=== PATIENT | female | born 1965 | race Caucasian/White ===

== ENCOUNTER 2016-10-07 23:52 | Emergency (ER) | payer OTHER ==
[~2016-10-07] VITALS: Ht 165.1 cm; Wt 90.9 kg
[2016-10-07 23:56] VITALS: BP 146/102; PULSE 84; RESP 16
--- NOTE | 2016-10-08 00:21 | ED.REPORT ---
HPI-Hand Prob/Inj Date of Service Oct 08, 2016 ED Provider: Hernan Ibarra MD Patient is a 50 year old female who presents to the ED complaining of a cat bite to the right hand that she sustained 2 days ago. Patient has a foster cat at home, who they are working with on some behavioral issues. The cat bite her while she was interacting with it. All of the cat's immunizations are up to date. The bite was painful after it first occurred, progressively becoming more painful, swollen, and red. She reports pain with movement of her fingers and difficulty straightening her fingers. She denies fever or chills. Nursing Notes Stated Complaint: CAT BITE, RT HAND Chief Complaint: Extremity Trauma Nursing Notes Reviewed: Yes Allergies: Coded Allergies: cephalexin (Verified Allergy, Intermediate, rash, 10/08/16) Scheduled Amoxicillin/Clav K 875-125 mg (Augmentin 875-125 mg) 1 Each Tablet 1 TABLET PO BID General Time Seen by Provider: 00:34 Chief Complaint Hand injury right Hx Obtained From: Patient Arrived By: Walk-in Onset Occurred: 2 days ago Symptom Duration: Since onset Progression Since Onset: Gradually worsening Location: Right Hand: : Dorsal surface Quality: Painful Severity: Current: Moderate Severity: Maximum: Moderate Recent Healthcare: No recent doctor visit, No recent hospitalization Similar Sx Previous: No Past Medical History Past Medical History IBS arthritis hypertension Past Surgical History colonoscopy Family History colon cancer Smoking History Unknown if Ever Smoker Social History Alcohol Use: "Social" Other Social History: Good social support, , Local resident Ambulatory Status Independent Review of Systems Constitutional: Denies: Chills, Fever Musculoskeletal: Reports: Extremity pain, Extremity swelling Complete sys rev & neg: except as marked. Physical Exam Initial Vital Signs Vital Signs (First) Date Time Temp Pulse Resp B/P Pulse Ox O2 Delivery O2 Flow Rate FiO2 10/07/16 23:56 36.0 84 16 146/102 Initial VS: Reviewed, Vital signs abnormal Head / Eyes: Atraumatic, Normocephalic, PERRL ENT: Conjunctiva normal, No scleral icterus Neck: Supple, Full range of motion Neurologic: Alert, Oriented, Nonfocal Psychiatric: Mood/affect normal, Behavior normal Wrist / Hand: Neurologic intact, Vascular intact Swelling over the ulnar 2/3 of the dorsum of the right hand. Small laceration in the middle. Small uninfected lacerations of the wrist. No swelling of the fingers, able to move with some pain. General/Constitutional: Awake, Alert, No acute distress Skin: Warm, Dry Respiratory / Chest: No respiratory distress, No stridor Cardiovascular: Heart rate NL, Cap refill not delayed, Peripheral circulation NL Upper Extremity / MS: Neurologic intact, Vascular intact Re-Eval/Medical Decision Med Decision/Clinical Course 50-year-old with a cat bite on the right hand and not treated initially. She has swelling redness and tenderness. There is some pain with movement of the hand generally but she is able to flex and extend her fingers. There is no purulent drainage for culture. She was given IV Unasyn to be followed by a course of Augmentin. She will follow-up with Dr. Shaheen Mosley at [facility] as needed for worsening symptoms by Sunday. Source of Hx: Old records Re-Evaluation/Progress : Time of Eval: 00:45 Re-Evaluation/Progress Note: Patient understands and agrees with the plan to be discharged home. Discharge instructions and follow-up discussed. All questions were addressed. Return to the ED warnings given. Patient is allergic to cephalexin, to which she states she developed a rash. She did not develop difficulty breathing. She will be given Unasyn. Counseled Regarding: Diagnosis, Need for follow-up, When/why to return to ED Discharge & Departure Primary Impression: Cat bite of hand Encounter type: initial encounter Laterality: right Qualified Code: S61.451A - Open bite of right hand, initial encounter Disposition: Home Discharge Condition All VS Reviewed: Yes Condition: Stable Patient Instructions: Animal Bite (ED) Additional Instructions: Infected cat bite. You received Unasyn IV antibiotic in the emergency room. Continue amoxicillin clavulanate (Augmentin) 875 mg twice daily, #14 prescribed. Elevation. Warm compresses. Follow-up at [facility] on Sunday or Sunday if not improving. Call me at [phone] between the hours of 9 PM and 6 AM for the next couple nights if you have questions or concerns. Referrals: Elvie Ward MD (PCP) Shaheen Mosley MD Scribe Attestation Portions of this note were transcribed by Kateryna Madrigal. I, Dr. Ibarra personally performed the history, physical exam and medical decision-making; I reviewed and confirmed the accuracy of the information in the transcribed note. Signed by: Jyotsna Anderson, 10/08/2016 0357 copies to: Shaheen Mosley MD; Elvie Ward MD, Howard L MD Oct 08, 2016 00:21 Kateryna Madrigal Oct 08, 2016 00:38
[2016-10-08] MEDS ORDERED: Ampicillin-Sulbactam Inj 3,000 MG in 0.9% Sodium Chloride 100 ML IV ONE (00:50)
[2016-10-08] MEDS ORDERED: AMOX-366 PO (01:56)
== END 2016-10-08 02:10 | disposition home or self-care (01) ==
LOC: SED 23:52
DX: S61.451A Open bite of right hand, initial encounter (principal); I10 Essential (primary) hypertension; W55.01XA Bitten by cat, initial encounter; Y93.89 Activity, other specified; Y93.K9 Activity, other involving animal care; Y92.009 Unspecified place in unspecified non-institutional (private) residence as the place of occurrence of the external cause; Z88.1 Allergy status to other antibiotic agents
CPT/HCPCS: 96365; 99284; J0295